=== PATIENT | female | born 1960 | race Caucasian/White ===

== ENCOUNTER → 2021-04-05 | Outpatient (CLI) | payer OTHER ==
[~2021-04-05] MED LIST: GADOTERATE 7.5 MMOL/15ML VIAL. IVP ONE
--- NOTE | 2021-04-05 15:03 | KCIC ---
EXAM: Brain MRI with and without contrast. HISTORY: Headaches. Vertigo. TECHNIQUE: Multiplanar, multisequence magnetic resonance imaging of the brain was performed prior to and following the administration of intravenous contrast. COMPARISON: None. FINDINGS: There is no restricted diffusion to suggest acute or subacute infarction. There are few sma ll foci of slight increased signal on diffusion weighted images within the bilateral cerebral white m atter. These appear to correspond with areas of increased signal on ADC map images, favoring T2 shine through artifact rather than subacute infarcts. There is no suspicious enhancing lesion. There are multiple scattered focal areas of signal change throughout the cerebral white matter and po ns, in a predominantly periventricular distribution. The orbits are unremarkable. There is minimal pa ranasal sinus mucosal thickening. The mastoid air cells are clear. There are normal flow voids within the cerebral vessels. There is a suspected small chronic lacunar infarct within the left cerebral pe duncle. There is no suspicious calvarial lesion. IMPRESSION: 1. No acute intracranial finding. 2. Multiple scattered areas of signal change throughout the cerebral white matter, the configuration and distribution of which suggests changes due to chronic demyelinating disease. Given the patient ag e, the possibility of superimposed changes due to chronic small vessel disease is also considered. Co rd with clinical history. 3. Tiny suspected chronic infarct within the left cerebral peduncle. Electronically signed by: Svetlana Olmos MD (04/05/2021 3:00 PM) [id number]
== END ==
LOC: KCIC MRI 13:55
PROVIDERS: ATTEND Family Medicine
DX: R90.82 White matter disease, unspecified (principal); G44.209 Tension-type headache, unspecified, not intractable; G44.52 New daily persistent headache (NDPH)
CPT/HCPCS: 70553; A9575